=== PATIENT | male | born 1985 | race Caucasian/White ===

== ENCOUNTER 2019-05-26 15:46 | Emergency (ER) | payer SELFPAY ==
[~2019-05-26] VITALS: Ht 203.2 cm; Wt 86.4 kg
[2019-05-26 15:46] VITALS: BP 138/69
== END 2019-05-26 18:02 | disposition left against medical advice (07) ==
LOC: M ED 15:46
DX: Z53.21 Procedure and treatment not carried out due to patient leaving prior to being seen by health care provider (principal)